=== PATIENT | female | born 1985 | race Caucasian/White ===

== ENCOUNTER 2017-04-13 04:10 | Inpatient (IN) | payer BC ==
[2017-04-13 05:20] LABS: ADD UMIC YES; UR ASCORBIC ACID NEGATIVE (NEGATIVE); UR BACTERIA FEW /HPF (NONE SEEN); UR BILIRUBIN (Dip) NEGATIVE (NEGATIVE); UR BLOOD (Dip) 2+ mg/dL (NEGATIVE); UR CLARITY CLEAR (CLEAR); UR COLOR YELLOW (YELLOW); UR GLUCOSE (Dip) NEGATIVE (NEGATIVE); UR KETONES (Dip) NEGATIVE (NEGATIVE); UR LEUKOCYTE ESTERASE (Dip) NEGATIVE Leu/ul (NEGATIVE); UR MUCUS FEW /HPF (NONE SEEN); UR NITRITE (Dip) NEGATIVE (NEGATIVE); UR RBC 1 /HPF (0-5); UR SPECIFIC GRAVITY (Dip) 1.019 (1.003-1.030); UR SQUAMOUS EPITHELIAL CELL FEW /HPF (FEW); UR TOTAL PROTEIN (Dip) NEGATIVE (NEGATIVE); UR UROBILINOGEN (Dip) NEGATIVE (NEGATIVE); UR WBC 1 /HPF (0-5)
[2017-04-13 05:26] LABS: ADD MAN DIFF? NO
[2017-04-13 05:27] LABS: BASOPHIL # 0.1 10^3/ul (0.0-0.1); BASOPHILS % 0.3 % (0.0-2.0); EOSINOPHILS # 0.2 10^3/ul (0.0-0.5); EOSINOPHILS % 1.2 % (0.0-7.0); HEMATOCRIT 39.4 % (37.0-47.0); HEMOGLOBIN 13.3 g/dl (12.0-16.0); LYMPHOCYTES # 1.8 10^3/ul (0.8-2.9); LYMPHOCYTES % 11.8 % (15.0-51.0); MEAN CORPUSCULAR HEMOGLOBIN 31.4 pg (29.0-33.0); MEAN CORPUSCULAR HGB CONC 33.8 g/dl (32.0-37.0); MEAN CORPUSCULAR VOLUME 92.9 fl (82.0-101.0); MEAN PLATELET VOLUME 10.9 fl (7.4-10.4); MONOCYTE # 0.7 10^3/ul (0.3-0.9); MONOCYTES % 4.5 % (0.0-11.0); NEUTROPHIL # 12.5 10^3/ul (1.6-7.5); NEUTROPHILS % 81.8 % (39.0-77.0); PLATELET COUNT 349 10^3/UL (140-415); RED BLOOD COUNT 4.24 10^6/ul (4.20-5.40); RED CELL DISTRIBUTION WIDTH 12.3 % (11.5-14.5)
[2017-04-13 05:27] LABS: WHITE BLOOD COUNT 15.2 10^3/ul (4.8-10.8)
[2017-04-13 05:43] LABS: ALANINE AMINOTRANSFERASE 59 IU/L (13-69); ALBUMIN 5.1 g/dl (3.3-4.9); ALBUMIN/GLOBULIN RATIO 1.34; ALKALINE PHOSPHATASE 72 IU/L (42-121); ANION GAP 18 (8-16); ASPARTATE AMINO TRANSFERASE 35 IU/L (15-46); BILIRUBIN,INDIRECT 0.2 mg/dl (0-1.1); BILIRUBIN,TOTAL 0.2 mg/dl (0.2-1.3); BLOOD UREA NITROGEN 11 mg/dl (7-20); CALCIUM 8.8 mg/dl (8.4-10.2); CARBON DIOXIDE 26 mmol/L (21-31); CHLORIDE 102 mmol/L (97-110); CREATININE 0.66 mg/dl (0.44-1.00); GLUCOSE 110 mg/dl (70-220); LIPASE 137 U/L (23-300); POTASSIUM 3.7 mmol/L (3.5-5.1); SODIUM 142 mmol/L (135-144); TOTAL PROTEIN 8.9 g/dl (6.1-8.1)
[2017-04-13] MEDS: ONDANSETRON 4 MG INJ IV ×5 (06:14→15:41)
[2017-04-13] MEDS: morphine 4 MG/ML VIAL IV ×3 (06:14→11:50)
[2017-04-13] MEDS: PIPER-TAZO 3.375 GM IV (PMX) 50 ML IVPB (08:53)
[2017-04-13] MEDS: DEXTROSE 5%-0.45% NACL 1,000 ML IV (09:30)
[2017-04-13] MEDS ORDERED: morphine LIQ (10 MG/5 ML) CUP PO (09:30)
[2017-04-13] MEDS: CIPROFLOXACIN 400MG/D5W 200 ML IVPB ×2 (09:30→22:26)
[2017-04-13] MEDS: FAMOTIDINE 20 MG TAB PO ×2 (09:31→22:27)
[2017-04-13] MEDS: DOCUSATE SODIUM 100 MG CAP PO ×2 (09:31→22:26)
[2017-04-13] MEDS: metroNIDAZOLE 500 MG/NS (PMX) 100 ML IVPB ×2 (13:12→22:26)
[2017-04-13] MEDS: morphine 2 MG INJ IV (15:50)
[2017-04-13] MEDS ORDERED: FENTAnyl 50 MCG/ML VIAL (18:46)
[2017-04-13] MEDS ORDERED: ACETAMINOPHEN 325 MG TAB PO (19:00)
[2017-04-13] MEDS ORDERED: LIDOCAINE 2% (SDV) 5 ML INJ (19:06)
[2017-04-13] MEDS ORDERED: ROCURONIUM 50 MG INJ (19:06)
[2017-04-13] MEDS ORDERED: SUGAMMADEX SODIUM 200 MG/2 ML VIAL IV (19:06)
[2017-04-13] MEDS ORDERED: SUCCINYLCHOLINE CHLORIDE 100 MG/5 ML SYG IV (19:06)
[2017-04-13] MEDS ORDERED: ROPIVACAINE 0.5 % 30 ML VIAL (19:06)
[2017-04-13] MEDS ORDERED: PROPOFOL 20 ML (19:06)
[2017-04-13] MEDS: LIDOCAINE 1%/EPI 30 ML INJ (19:29)
[2017-04-13] MEDS: BUPIVACAINE 0.5%/EPI (SDV) 30 ML INJ (19:29)
[2017-04-13] MEDS ORDERED: MEPERIDINE 25 MG INJ IV (19:30)
[2017-04-13] MEDS ORDERED: DIPHENHYDRAMINE 50 MG INJ IV (19:30)
[2017-04-13] MEDS ORDERED: HYDROmorphONE (0.2 MG/ML) 10ML SYG IV ×2 (19:30)
[2017-04-13] MEDS ORDERED: ONDANSETRON 4 MG INJ IV (19:30)
[2017-04-13] MEDS ORDERED: FENTAnyl 50 MCG/ML VIAL IV ×2 (19:30)
[2017-04-13] MEDS: HYDROmorphONE (0.2 MG/ML) 10ML SYG IV (20:00)
[2017-04-13] MEDS: METOCLOPRAMIDE 10 MG INJ IV (20:01)
[2017-04-14] MEDS: PIPER-TAZO 3.375 GM IV (PMX) 100 ML IVPB ×5 (00:58→23:33)
[2017-04-14] MEDS: HYDROCODONE/APAP (5/325) TAB PO (01:09)
[2017-04-14] MEDS: metroNIDAZOLE 500 MG/NS (PMX) 100 ML IVPB ×3 (05:01→21:00)
[2017-04-14] MEDS: D5-NS + KCL 20 MEQ 1,000 ML IV ×4 (05:02→21:02)
[2017-04-14 06:34] LABS: ADD MAN DIFF? NO
[2017-04-14 06:39] LABS: WHITE BLOOD COUNT 11.2 10^3/ul (4.8-10.8)
[2017-04-14 06:39] LABS: BASOPHILS % 0.2 % (0.0-2.0); EOSINOPHILS % 0.1 % (0.0-7.0); HEMATOCRIT 32.6 % (37.0-47.0); HEMOGLOBIN 10.8 g/dl (12.0-16.0); LYMPHOCYTES # 1.5 10^3/ul (0.8-2.9); LYMPHOCYTES % 13.3 % (15.0-51.0); MEAN CORPUSCULAR HEMOGLOBIN 30.7 pg (29.0-33.0); MEAN CORPUSCULAR HGB CONC 33.1 g/dl (32.0-37.0); MEAN CORPUSCULAR VOLUME 92.6 fl (82.0-101.0); MEAN PLATELET VOLUME 10.9 fl (7.4-10.4); MONOCYTE # 0.7 10^3/ul (0.3-0.9); MONOCYTES % 6.5 % (0.0-11.0); NEUTROPHIL # 8.9 10^3/ul (1.6-7.5); NEUTROPHILS % 79.5 % (39.0-77.0); PLATELET COUNT 265 10^3/UL (140-415); RED BLOOD COUNT 3.52 10^6/ul (4.20-5.40); RED CELL DISTRIBUTION WIDTH 12.2 % (11.5-14.5)
[2017-04-14 07:16] LABS: ANION GAP 13 (8-16); BLOOD UREA NITROGEN 3 mg/dl (7-20); CALCIUM 8.1 mg/dl (8.4-10.2); CARBON DIOXIDE 28 mmol/L (21-31); CHLORIDE 98 mmol/L (97-110); CREATININE 0.59 mg/dl (0.44-1.00); GLUCOSE 118 mg/dl (70-220); MAGNESIUM 1.6 mg/dl (1.7-2.5); POTASSIUM 3.7 mmol/L (3.5-5.1); SODIUM 135 mmol/L (135-144)
[2017-04-14] MEDS: ONDANSETRON 4 MG INJ IV (08:34)
[2017-04-14] MEDS: morphine 2 MG INJ IV (08:34)
[2017-04-14] MEDS: IBUPROFEN 600 MG TAB PO (08:35)
[2017-04-14] MEDS: FAMOTIDINE 20 MG TAB PO ×2 (08:40→20:56)
[2017-04-14] MEDS: DOCUSATE SODIUM 100 MG CAP PO ×2 (08:40→20:56)
[2017-04-14] MEDS: ENOXAPARIN 40 MG/0.4 ML SYG SC (08:41)
[2017-04-14] MEDS: CIPROFLOXACIN 400MG/D5W 200 ML IVPB (08:43)
[2017-04-14] MEDS: MAGNESIUM SULFATE 2 GM/50 ML 50 ML IVPB (16:19)
[2017-04-14] MEDS: METOCLOPRAMIDE 10 MG INJ IV ×2 (17:33→23:33)
[2017-04-15] MEDS: PIPER-TAZO 3.375 GM IV (PMX) 100 ML IVPB ×2 (05:14→11:27)
[2017-04-15] MEDS: metroNIDAZOLE 500 MG/NS (PMX) 100 ML IVPB ×2 (05:45→13:07)
[2017-04-15] MEDS: METOCLOPRAMIDE 10 MG INJ IV ×2 (05:45→11:28)
[2017-04-15] MEDS: ENOXAPARIN 40 MG/0.4 ML SYG SC (05:51)
[2017-04-15 06:33] LABS: ADD MAN DIFF? NO
[2017-04-15 06:40] LABS: WHITE BLOOD COUNT 7.5 10^3/ul (4.8-10.8)
[2017-04-15 06:40] LABS: BASOPHILS % 0.4 % (0.0-2.0); EOSINOPHILS # 0.1 10^3/ul (0.0-0.5); EOSINOPHILS % 0.8 % (0.0-7.0); HEMATOCRIT 31.6 % (37.0-47.0); HEMOGLOBIN 10.4 g/dl (12.0-16.0); LYMPHOCYTES # 1.8 10^3/ul (0.8-2.9); LYMPHOCYTES % 24.6 % (15.0-51.0); MEAN CORPUSCULAR HEMOGLOBIN 31.1 pg (29.0-33.0); MEAN CORPUSCULAR HGB CONC 32.9 g/dl (32.0-37.0); MEAN CORPUSCULAR VOLUME 94.6 fl (82.0-101.0); MEAN PLATELET VOLUME 10.8 fl (7.4-10.4); MONOCYTE # 0.5 10^3/ul (0.3-0.9); MONOCYTES % 7.2 % (0.0-11.0); NEUTROPHILS % 66.7 % (39.0-77.0); PLATELET COUNT 264 10^3/UL (140-415); RED BLOOD COUNT 3.34 10^6/ul (4.20-5.40); RED CELL DISTRIBUTION WIDTH 12.9 % (11.5-14.5)
[2017-04-15 07:11] LABS: MAGNESIUM 2.3 mg/dl (1.7-2.5)
[2017-04-15 07:22] LABS: ANION GAP 13 (8-16); BLOOD UREA NITROGEN 3 mg/dl (7-20); CALCIUM 7.4 mg/dl (8.4-10.2); CARBON DIOXIDE 26 mmol/L (21-31); CHLORIDE 108 mmol/L (97-110); CREATININE 0.62 mg/dl (0.44-1.00); GLUCOSE 97 mg/dl (70-220); POTASSIUM 3.9 mmol/L (3.5-5.1); SODIUM 143 mmol/L (135-144)
[2017-04-15] MEDS: DOCUSATE SODIUM 100 MG CAP PO (08:51)
[2017-04-15] MEDS: FAMOTIDINE 20 MG TAB PO (08:51)
[2017-04-15] MEDS: D5-NS + KCL 20 MEQ 1,000 ML IV (11:27)
== END 2017-04-15 16:16 | disposition home or self-care (01) | DRG 342 ==
LOC: FTE 04:10 → REC 08:46 → PP2 21:33
PROC: 0DTJ4ZZ Resection of Appendix, Percutaneous Endoscopic Approach (ICD-10-PCS; principal; 2017-04-13 18:43)
DX: K35.80 Unspecified acute appendicitis (principal); K56.7 Ileus, unspecified; E83.42 Hypomagnesemia
CPT/HCPCS: 36415; 74176; 80048; 80053; 81001; 83690; 83735; 85025; 88304; 96365; 96366; 96367; 96375; 96376; 99285-25

== ENCOUNTER 2017-12-13 16:09 | Emergency (ER) | payer BC ==
[2017-12-13] MEDS: IBUPROFEN 600 MG TAB PO (20:04)
[2017-12-13 20:14] LABS: ADD MAN DIFF? NO
[2017-12-13 20:16] LABS: WHITE BLOOD COUNT 7.1 10^3/ul (4.8-10.8)
[2017-12-13 20:16] LABS: RED BLOOD COUNT 4.25 10^6/ul (4.20-5.40)
[2017-12-13 20:17] LABS: BASOPHILS % 0.3 % (0.0-2.0); EOSINOPHILS # 0.2 10^3/ul (0.0-0.5); EOSINOPHILS % 2.8 % (0.0-7.0); HEMATOCRIT 40.1 % (37.0-47.0); LYMPHOCYTES # 2.5 10^3/ul (0.8-2.9); LYMPHOCYTES % 35.5 % (15.0-51.0); MEAN CORPUSCULAR HEMOGLOBIN 30.6 pg (29.0-33.0); MEAN CORPUSCULAR HGB CONC 32.4 g/dl (32.0-37.0); MEAN CORPUSCULAR VOLUME 94.4 fl (82.0-101.0); MEAN PLATELET VOLUME 10.5 fl (7.4-10.4); MONOCYTE # 0.6 10^3/ul (0.3-0.9); MONOCYTES % 7.9 % (0.0-11.0); NEUTROPHIL # 3.8 10^3/ul (1.6-7.5); NEUTROPHILS % 53.4 % (39.0-77.0); PLATELET COUNT 322 10^3/UL (140-415); RED CELL DISTRIBUTION WIDTH 12.5 % (11.5-14.5)
[2017-12-13 20:19] LABS: ADD UMIC YES; UR ASCORBIC ACID NEGATIVE (NEGATIVE); UR BILIRUBIN (Dip) NEGATIVE (NEGATIVE); UR BLOOD (Dip) 1+ mg/dL (NEGATIVE); UR CLARITY CLEAR (CLEAR); UR COLOR STRAW (YELLOW); UR GLUCOSE (Dip) NEGATIVE (NEGATIVE); UR KETONES (Dip) NEGATIVE (NEGATIVE); UR LEUKOCYTE ESTERASE (Dip) NEGATIVE Leu/ul (NEGATIVE); UR NITRITE (Dip) NEGATIVE (NEGATIVE); UR RBC 1 /HPF (0-5); UR SPECIFIC GRAVITY (Dip) 1.006 (1.003-1.030); UR TOTAL PROTEIN (Dip) NEGATIVE (NEGATIVE); UR UROBILINOGEN (Dip) NEGATIVE (NEGATIVE); UR WBC 0 /HPF (0-5)
[2017-12-13 20:37] LABS: ALANINE AMINOTRANSFERASE 67 IU/L (13-69); ALBUMIN 4.7 g/dl (3.3-4.9); ALKALINE PHOSPHATASE 61 IU/L (42-121); ANION GAP 12 (8-16); ASPARTATE AMINO TRANSFERASE 40 IU/L (15-46); BILIRUBIN,INDIRECT 0.4 mg/dl (0-1.1); BILIRUBIN,TOTAL 0.4 mg/dl (0.2-1.3); BLOOD UREA NITROGEN 8 mg/dl (7-20); CARBON DIOXIDE 30 mmol/L (21-31); CHLORIDE 103 mmol/L (97-110); CREATININE 0.51 mg/dl (0.44-1.00); GLUCOSE 77 mg/dl (70-220); LIPASE 28 U/L (23-300); POTASSIUM 3.6 mmol/L (3.5-5.1); SODIUM 141 mmol/L (135-144); TOTAL PROTEIN 8.3 g/dl (6.1-8.1)
== END 2017-12-13 21:41 | disposition home or self-care (01) ==
LOC: FTE 16:09
DX: R10.2 Pelvic and perineal pain (principal)
CPT/HCPCS: 36415; 76856; 80053; 81001; 81025; 83690; 85025; 99284-25

== ENCOUNTER 2018-01-05 07:37 | Emergency (ER) | payer BC ==
[2018-01-05] MEDS: ACETAMINOPHEN 500 MG TAB PO (08:03)
[2018-01-05 08:10] LABS: ADD MAN DIFF? NO
[2018-01-05 08:13] LABS: WHITE BLOOD COUNT 6.1 10^3/ul (4.8-10.8)
[2018-01-05 08:14] LABS: BASOPHILS % 0.5 % (0.0-2.0); EOSINOPHILS # 0.2 10^3/ul (0.0-0.5); EOSINOPHILS % 2.5 % (0.0-7.0); HEMATOCRIT 36.4 % (37.0-47.0); HEMOGLOBIN 11.9 g/dl (12.0-16.0); LYMPHOCYTES # 1.7 10^3/ul (0.8-2.9); LYMPHOCYTES % 28.1 % (15.0-51.0); MEAN CORPUSCULAR HEMOGLOBIN 30.2 pg (29.0-33.0); MEAN CORPUSCULAR HGB CONC 32.7 g/dl (32.0-37.0); MEAN CORPUSCULAR VOLUME 92.4 fl (82.0-101.0); MEAN PLATELET VOLUME 10.5 fl (7.4-10.4); MONOCYTE # 0.4 10^3/ul (0.3-0.9); MONOCYTES % 7.2 % (0.0-11.0); NEUTROPHIL # 3.8 10^3/ul (1.6-7.5); NEUTROPHILS % 61.5 % (39.0-77.0); PLATELET COUNT 320 10^3/UL (140-415); RED BLOOD COUNT 3.94 10^6/ul (4.20-5.40); RED CELL DISTRIBUTION WIDTH 12.3 % (11.5-14.5)
[2018-01-05 08:31] LABS: ALANINE AMINOTRANSFERASE 44 IU/L (13-69); ALBUMIN 3.8 g/dl (3.3-4.9); ALBUMIN/GLOBULIN RATIO 1.02; ALKALINE PHOSPHATASE 58 IU/L (42-121); AMYLASE 66 U/L (11-123); ANION GAP 14 (8-16); ASPARTATE AMINO TRANSFERASE 41 IU/L (15-46); BILIRUBIN,INDIRECT 0.6 mg/dl (0-1.1); BILIRUBIN,TOTAL 0.6 mg/dl (0.2-1.3); BLOOD UREA NITROGEN 8 mg/dl (7-20); CALCIUM 9.1 mg/dl (8.4-10.2); CARBON DIOXIDE 27 mmol/L (21-31); CHLORIDE 102 mmol/L (97-110); CREATININE 0.59 mg/dl (0.44-1.00); GLUCOSE 91 mg/dl (70-220); LIPASE 19 U/L (23-300); POTASSIUM 3.9 mmol/L (3.5-5.1); SODIUM 139 mmol/L (135-144); TOTAL PROTEIN 7.5 g/dl (6.1-8.1)
[2018-01-05 09:59] LABS: ADD UMIC YES; UR ASCORBIC ACID NEGATIVE (NEGATIVE); UR BACTERIA FEW /HPF (NONE SEEN); UR BILIRUBIN (Dip) NEGATIVE (NEGATIVE); UR BLOOD (Dip) 2+ mg/dL (NEGATIVE); UR CLARITY CLOUDY (CLEAR); UR COLOR AMBER (YELLOW); UR GLUCOSE (Dip) NEGATIVE (NEGATIVE); UR KETONES (Dip) 1+ mg/dL (NEGATIVE); UR LEUKOCYTE ESTERASE (Dip) NEGATIVE Leu/ul (NEGATIVE); UR MUCUS MANY /HPF (NONE SEEN); UR NITRITE (Dip) NEGATIVE (NEGATIVE); UR RBC 3 /HPF (0-5); UR SPECIFIC GRAVITY (Dip) 1.026 (1.003-1.030); UR SQUAMOUS EPITHELIAL CELL MANY /HPF (FEW); UR TOTAL PROTEIN (Dip) 1+ mg/dl (NEGATIVE); UR UROBILINOGEN (Dip) NEGATIVE (NEGATIVE); UR WBC 6 /HPF (0-5)
== END 2018-01-05 10:39 | disposition home or self-care (01) ==
LOC: FTE 07:37
DX: O20.9 Hemorrhage in early pregnancy, unspecified (principal); O23.41 Unspecified infection of urinary tract in pregnancy, first trimester; R10.2 Pelvic and perineal pain; Z3A.01 Less than 8 weeks gestation of pregnancy
CPT/HCPCS: 76801; 76817; 80053; 81001; 81025; 82150; 83690; 84702; 85025; 86900; 86901; 87086; 99284-25

== ENCOUNTER 2018-04-13 14:12 | Outpatient (CLI) | payer BC ==
[2018-04-13 16:22] LABS: ADD UMIC YES; UR ASCORBIC ACID NEGATIVE (NEGATIVE); UR BILIRUBIN (Dip) NEGATIVE (NEGATIVE); UR BLOOD (Dip) NEGATIVE (NEGATIVE); UR CLARITY CLEAR (CLEAR); UR COLOR STRAW (YELLOW); UR GLUCOSE (Dip) NEGATIVE (NEGATIVE); UR KETONES (Dip) NEGATIVE (NEGATIVE); UR LEUKOCYTE ESTERASE (Dip) TRACE Leu/ul (NEGATIVE); UR NITRITE (Dip) NEGATIVE (NEGATIVE); UR RBC 0 /HPF (0-5); UR SPECIFIC GRAVITY (Dip) 1.006 (1.003-1.030); UR TOTAL PROTEIN (Dip) NEGATIVE (NEGATIVE); UR UROBILINOGEN (Dip) NEGATIVE (NEGATIVE); UR WBC 0 /HPF (0-5)
== END 2018-04-13 16:45 | disposition home or self-care (01) ==
LOC: OBT 14:12 → L-D 14:12 → OBT 16:45
DX: O26.892 Other specified pregnancy related conditions, second trimester (principal); Z3A.20 20 weeks gestation of pregnancy; M54.5 Low back pain
CPT/HCPCS: 76817; 81001